=== PATIENT | male | born 1960 | race Caucasian/White ===

== ENCOUNTER 2016-05-19 04:02 | Emergency (ER) | payer MEDICAID, OTHER ==
[~2016-05-19] VITALS: Ht 188 cm; Wt 120.2 kg
[~2016-05-19 04:02] MED LIST: COREG; DIGO0.1262; ENALAPRIL; FURO20TA; INSLANTI; LEVO50TA66; NOVOLOG; SPIRONLACTONE; [UNRECOGNIZED DRUG - OTHER]
[2016-05-19 05:08] LABS: Hematocrit 47.1 % (41.0-53.0); Hemoglobin 15.9 g/dL (13.5-17.5); Mean Corpuscular Hemoglobin 30.4 pg (28.0-32.0); Mean Corpuscular Hgb Conc. 33.7 g/dL (32.0-36.0); Mean Corpuscular Volume 90.1 fL (80.0-100.0); Mean Platelet Volume 10.3 fL (7.4-10.4); Platelet Count (auto) 222 10^3/uL (140-450); SUSPECT VIEW TRANSMISSION; White Blood Cell 17.5 10^3/uL (4.4-10.8)
[2016-05-19 05:12] LABS: Metamyelocytes % 0; Myelocytes % 0; Promyelocytes % 0; Reactive Lymphocytes 0
[2016-05-19 05:15] LABS: INR 1.06 (0.9-1.15); Partial Thromboplastin Time 22.8 sec (22.64-33.71); Prothrombin Time 10.9 sec (9.37-12.3)
[2016-05-19] MEDS ORDERED: ONDANSETRON HCL 4 MG/2 ML VIAL ONE (05:21)
[2016-05-19 05:28] LABS: Albumin 3.8 g/dL (3.4-5.0); Calcium 8.2 mg/dL (8.5-10.1); Magnesium 1.9 mg/dL (1.6-2.6); Potassium 3.7 mmol/L (3.5-5.1)
[2016-05-19] MEDS ORDERED: ONDANSETRON HCL 4 MG/2 ML VIAL IV ONE (05:30)
[2016-05-19 05:33] LABS: Bilirubin, Total 0.6 mg/dL (0.2-1.0); Total Protein 7.4 g/dL (6.4-8.2)
[2016-05-19 06:02] LABS: Platelet Estimate Adequate
[2016-05-19 06:03] LABS: RBC Morphology Normal
[2016-05-19] MEDS ORDERED: SODIUM CHLORIDE 0.9% 1,000 ML IV ONE (06:45)
[2016-05-19] MEDS ORDERED: MORPHINE SULF 15mg ER tab PO ONE (07:15)
[2016-05-19 10:45] VITALS: BP 126/71
[2016-05-19 13:28] LABS: Urine RBC None Seen /hpf (0 - 3)
[2016-05-19 14:07] LABS: Urine Bilirubin Negative (Negative); Urine Blood Negative /uL (Negative); Urine Color Yellow (Yellow); Urine Glucose Normal (Normal); Urine Hyaline Cast FEW /lpf (0 - 2); Urine Ketone TRACE (Negative); Urine Mucus FEW (None Seen); Urine Nitrite Negative (Negative); Urine Urobilinogen Normal (Negative); Urine pH 5.5 (5.0-8.0)
[2016-05-19 15:03] VITALS: BP 106/62
[2016-05-19] MEDS ORDERED: KETOROLAC TROMETH 30 MG/ML 1ML VIAL IV ONE (15:15)
== END 2016-05-19 17:08 | disposition home or self-care (01) ==
LOC: ER 04:02
DX: R07.89 Other chest pain (principal); E03.9 Hypothyroidism, unspecified; E11.65 Type 2 diabetes mellitus with hyperglycemia; F11.23 Opioid dependence with withdrawal; I11.0 Hypertensive heart disease with heart failure; I50.9 Heart failure, unspecified; I48.91 Unspecified atrial fibrillation; R53.1 Weakness; R11.2 Nausea with vomiting, unspecified; Z95.0 Presence of cardiac pacemaker; Z79.4 Long term (current) use of insulin
CPT/HCPCS: 36415; 71020; 80053; 81001; 81002; 83735; 84443; 84484; 85007; 85027; 85610; 85730; 93005; 94761; 96361; 96374; 96375; 99285; J1885; J2405

== ENCOUNTER 2017-03-24 09:22 | Inpatient (IN) | payer MEDICAID, OTHER ==
[~2017-03-24] VITALS: Ht 195.6 cm; Wt 112.5 kg
[~2017-03-24 09:22] MED LIST changes: -COREG; +COREG PO; -DIGO0.1262; +DIGO0.1262 PO; -FURO20TA; +FURO20TA PO; -LEVO50TA66; +LEVO50TA66 PO; -SPIRONLACTONE; +SPIRONLACTONE PO; -[UNRECOGNIZED DRUG - OTHER]; +[UNRECOGNIZED DRUG - OTHER] PO
[2017-03-24 09:48] LABS: Basophils # (auto) 0.1 uL; Basophils % (auto) 0.8 % (0.0-2.0); Eosinophils # (auto) 0.3 uL; Eosinophils % (auto) 4.9 % (0.0-7.0); Hematocrit 44.1 % (41.0-53.0); Hemoglobin 15.5 g/dL (13.5-17.5); Lymphocytes # (auto) 2.4 uL; Lymphocytes % (auto) 33.8 % (10.0-50.0); Mean Corpuscular Hemoglobin 31.4 pg (28.0-32.0); Mean Corpuscular Hgb Conc. 35.1 g/dL (32.0-36.0); Mean Corpuscular Volume 89.5 fL (80.0-100.0); Monocytes # (auto) 0.6 uL; Neutrophils # (auto) 3.7 uL; Neutrophils % (auto) 52.5 % (37.0-80.0); Nucleated Red Blood Cells % 0.1 %; Platelet Count (auto) 222 10^3/uL (140-450); Red Blood Cells 4.93 10^6/uL (4.5-5.90); Red Cell Distribution Width 13.2 % (11.8-14.3); White Blood Cell 7.1 10^3/uL (4.4-10.8)
[2017-03-24 10:03] LABS: Albumin 3.9 g/dL (3.4-5.0); BUN/Creatinine Ratio 13.1; Bilirubin, Total 0.9 mg/dL (0.2-1.0); Calcium 8.4 mg/dL (8.5-10.1); Magnesium 2.3 mg/dL (1.6-2.6); Potassium 4.1 mmol/L (3.5-5.1); Total Protein 7.7 g/dL (6.4-8.2)
[2017-03-24] MEDS ORDERED: ENOXAPARIN SOD 120 MG/0.8 ML SYRINGE SC ONE (10:45)
[2017-03-24] MEDS ORDERED: ASPirin 325 MG TAB PO ONE (10:45)
[2017-03-24] MEDS ORDERED: METF-370 PO (12:13)
[2017-03-24] MEDS ORDERED: ASPI325T47 PO (12:13)
[2017-03-24] MEDS ORDERED: ATOR1TAB PO (12:13)
[2017-03-24] MEDS ORDERED: HYDR-531 PO (12:14)
[2017-03-24] MEDS ORDERED: INSU1INJ19 SC (12:14)
[2017-03-24] MEDS ORDERED: FENT25DI2 TD (12:14)
[2017-03-24] MEDS ORDERED: NITROGLYCERIN 0.4 MG SL TAB SL PRN (12:45)
[2017-03-24] MEDS ORDERED: DEXTROSE (50%) 50ML SYRG IV PRN (12:45)
[2017-03-24] MEDS ORDERED: MORPHINE SULF INJ 2 MG/ML SYRINGE 1ML IV PRN ×2 (12:45)
[2017-03-24] MEDS ORDERED: AMIODARONE HCL 900 MG in DEXTROSE 500 ML IV SCH ×2 (12:51→18:51)
[2017-03-24] MEDS ORDERED: LISINOPRIL 20 MG TAB PO ONE (13:45)
[2017-03-24] MEDS ORDERED: GABA300C10 PO (16:25)
[2017-03-24] MEDS ORDERED: fentaNYL 25MCG/HR 25 MCG/HR PAT TD SCH (16:30)
[2017-03-24] MEDS ORDERED: GABAPENTIN 400 MG CAP PO ONE (17:00)
[2017-03-24] MEDS: ACCU-CHEK COMFORT CURVE STRIP VI SCH ×2 (17:48→22:17)
[2017-03-24] MEDS: InsuLIN REG 1unit/0.01ml Soln (100units/ml) SC SCH ×2 (17:50→22:00)
[2017-03-24] MEDS ORDERED: FUROSEMIDE 40 MG TAB PO SCH (18:00)
[2017-03-24] MEDS: SPIRONOLACTONE 25 MG TAB PO SCH (18:17)
[2017-03-24] MEDS ORDERED: PATIENTS OWN MEDICATION (Atorvastatin Calcium 80 MG) PO SCH (22:00)
[2017-03-24] MEDS ORDERED: COREG 25 MG PO SCH (22:00)
[2017-03-24] MEDS: INSULIN DETEMIR(LEVEMIR) 1unit/0.01ml Soln (100units/ml) SC SCH (22:00)
[2017-03-24] MEDS: ASPirin-EC 325mg tab PO SCH (22:16)
[2017-03-24] MEDS: CARVEDILOL 12.5 MG TAB PO SCH (22:16)
[2017-03-24] MEDS: ATORVASTATIN 20 MG TAB PO SCH (22:17)
[2017-03-24] MEDS: GABAPENTIN 400 MG CAP PO SCH (22:17)
[2017-03-25] MEDS: HYDROcodone-ACET 10/325MG TAB PO PRN ×3 (02:58→23:00)
[2017-03-25] MEDS: SPIRONOLACTONE 25 MG TAB PO SCH ×2 (06:00→18:36)
[2017-03-25] MEDS: GABAPENTIN 400 MG CAP PO SCH ×3 (06:00→21:50)
[2017-03-25 06:33] LABS: Basophils # (auto) 0 uL; Basophils % (auto) 0.5 % (0.0-2.0); Eosinophils # (auto) 0.3 uL; Eosinophils % (auto) 3.1 % (0.0-7.0); Hematocrit 39.9 % (41.0-53.0); Hemoglobin 13.9 g/dL (13.5-17.5); Lymphocytes # (auto) 2.6 uL; Lymphocytes % (auto) 28.2 % (10.0-50.0); Mean Corpuscular Hemoglobin 31.5 pg (28.0-32.0); Mean Corpuscular Hgb Conc. 34.9 g/dL (32.0-36.0); Mean Corpuscular Volume 90.1 fL (80.0-100.0); Monocytes # (auto) 0.7 uL; Monocytes % (auto) 7.8 % (0.0-12.0); Neutrophils # (auto) 5.5 uL; Neutrophils % (auto) 60.4 % (37.0-80.0); Platelet Count (auto) 213 10^3/uL (140-450); Red Blood Cells 4.43 10^6/uL (4.5-5.90); White Blood Cell 9.1 10^3/uL (4.4-10.8)
[2017-03-25 06:38] LABS: BUN/Creatinine Ratio 12.4; Calcium 8.5 mg/dL (8.5-10.1); Potassium 4.2 mmol/L (3.5-5.1)
[2017-03-25 06:42] LABS: Cholesterol 165 mg/dL (< 200); HDL Cholesterol 34 mg/dL (40-59); LDL Cholesterol 116 mg/dL (< 100); Triglycerides 174 mg/dL (< 150)
[2017-03-25] MEDS: InsuLIN REG 1unit/0.01ml Soln (100units/ml) SC SCH ×4 (07:22→22:00)
[2017-03-25] MEDS: ACCU-CHEK COMFORT CURVE STRIP VI SCH ×4 (07:22→22:00)
[2017-03-25] MEDS: LEVOTHYROXINE SODIUM 25 MCG TAB PO SCH (07:22)
[2017-03-25] MEDS: CARVEDILOL 12.5 MG TAB PO SCH ×2 (09:55→21:50)
[2017-03-25] MEDS: ASPirin-EC 325mg tab PO SCH ×2 (09:57→21:50)
[2017-03-25] MEDS: FUROSEMIDE 40 MG TAB PO SCH (09:58)
[2017-03-25] MEDS: LISINOPRIL 20 MG TAB PO SCH (09:58)
[2017-03-25] MEDS ORDERED: LEVOTHYROXINE SODIUM 50 MCG TAB PO SCH (10:00)
[2017-03-25] MEDS: DIGOXIN 0.125 MG TAB PO SCH (10:00)
[2017-03-25] MEDS: INSULIN DETEMIR(LEVEMIR) 1unit/0.01ml Soln (100units/ml) SC SCH ×2 (11:57→22:00)
[2017-03-25] MEDS ORDERED: AMIODARONE HCL 200 MG TAB PO ONE (14:30)
[2017-03-25] MEDS: ATORVASTATIN 20 MG TAB PO SCH (21:50)
[2017-03-25] MEDS: AMIODARONE HCL 200 MG TAB PO SCH (21:50)
[2017-03-25 22:00] VITALS: BP 108/64
[2017-03-25 22:10] VITALS: BP 108/64
[2017-03-26] MEDS: HYDROcodone-ACET 10/325MG TAB PO PRN ×2 (05:01→21:22)
[2017-03-26 06:00] VITALS: BP 103/58
[2017-03-26] MEDS: LEVOTHYROXINE SODIUM 25 MCG TAB PO SCH (06:30)
[2017-03-26] MEDS: GABAPENTIN 400 MG CAP PO SCH ×3 (06:30→21:20)
[2017-03-26] MEDS: InsuLIN REG 1unit/0.01ml Soln (100units/ml) SC SCH ×4 (06:30→21:45)
[2017-03-26] MEDS: SPIRONOLACTONE 25 MG TAB PO SCH ×2 (06:30→17:04)
[2017-03-26] MEDS: ACCU-CHEK COMFORT CURVE STRIP VI SCH ×4 (06:30→21:24)
[2017-03-26] MEDS ORDERED: INFLUENZA QUAD 2017-2018 0.5 ML SYRG IM ONE (06:30)
[2017-03-26 09:00] VITALS: BP 81/39
[2017-03-26] MEDS: LISINOPRIL 20 MG TAB PO SCH (10:00)
[2017-03-26] MEDS: CARVEDILOL 12.5 MG TAB PO SCH ×2 (10:00→21:22)
[2017-03-26] MEDS: DIGOXIN 0.125 MG TAB PO SCH (10:00)
[2017-03-26] MEDS: AMIODARONE HCL 200 MG TAB PO SCH ×2 (10:00→21:20)
[2017-03-26] MEDS: FUROSEMIDE 40 MG TAB PO SCH (10:00)
[2017-03-26] MEDS: ASPirin-EC 325mg tab PO SCH ×2 (10:22→21:19)
[2017-03-26] MEDS: INSULIN DETEMIR(LEVEMIR) 1unit/0.01ml Soln (100units/ml) SC SCH ×2 (11:51→21:45)
[2017-03-26 13:00] VITALS: BP 98/60
[2017-03-26 17:00] VITALS: BP 119/55
[2017-03-26] MEDS: ATORVASTATIN 20 MG TAB PO SCH (21:21)
[2017-03-26 22:00] VITALS: BP 118/75
[2017-03-27] MEDS ORDERED: TEMAZEPAM 15 MG CAP PO ONE (03:00)
[2017-03-27 05:14] VITALS: BP 114/57
[2017-03-27] MEDS: SPIRONOLACTONE 25 MG TAB PO SCH (06:20)
[2017-03-27] MEDS: GABAPENTIN 400 MG CAP PO SCH ×2 (06:20→14:32)
[2017-03-27] MEDS: ACCU-CHEK COMFORT CURVE STRIP VI SCH ×2 (06:20→11:30)
[2017-03-27] MEDS: LEVOTHYROXINE SODIUM 25 MCG TAB PO SCH (06:20)
[2017-03-27] MEDS: InsuLIN REG 1unit/0.01ml Soln (100units/ml) SC SCH ×2 (06:20→11:30)
[2017-03-27 07:30] VITALS: BP 118/75
[2017-03-27 08:30] VITALS: BP 112/71
[2017-03-27] MEDS ORDERED: LISI2.5T47 PO (09:38)
[2017-03-27] MEDS ORDERED: CARV6.25 PO (09:38)
[2017-03-27] MEDS ORDERED: SPIR25TA88 PO (09:38)
[2017-03-27] MEDS ORDERED: FURO20TA PO (09:38)
[2017-03-27] MEDS: ASPirin-EC 325mg tab PO SCH (09:42)
[2017-03-27] MEDS: LISINOPRIL 20 MG TAB PO SCH (09:42)
[2017-03-27] MEDS: AMIODARONE HCL 200 MG TAB PO SCH (09:42)
[2017-03-27] MEDS: FUROSEMIDE 40 MG TAB PO SCH (09:43)
[2017-03-27] MEDS: CARVEDILOL 12.5 MG TAB PO SCH (09:43)
[2017-03-27] MEDS: DIGOXIN 0.125 MG TAB PO SCH (09:43)
[2017-03-27] MEDS: INSULIN DETEMIR(LEVEMIR) 1unit/0.01ml Soln (100units/ml) SC SCH (09:44)
[2017-03-27 12:54] VITALS: BP 109/61
== END 2017-03-27 15:00 | disposition home or self-care (01) | DRG 190 ==
LOC: ER 09:22 → EDBD 09:22 → TELE 09:23 → TELE-WESTW 03-25 22:05
PROVIDERS: ADMIT Internal Medicine; ATTEND Internal Medicine
PROC: 4B02XTZ Measurement of Cardiac Defibrillator, External Approach (ICD-10-PCS; principal; 2017-03-24)
DX: I21.4 Non-ST elevation (NSTEMI) myocardial infarction (principal); N17.0 Acute kidney failure with tubular necrosis; E11.65 Type 2 diabetes mellitus with hyperglycemia; I11.0 Hypertensive heart disease with heart failure; I50.22 Chronic systolic (congestive) heart failure; Z23 Encounter for immunization; E03.9 Hypothyroidism, unspecified; E78.5 Hyperlipidemia, unspecified; I42.0 Dilated cardiomyopathy; I45.6 Pre-excitation syndrome; Z79.82 Long term (current) use of aspirin; Z79.84 Long term (current) use of oral hypoglycemic drugs; Z79.899 Other long term (current) drug therapy; Z86.74 Personal history of sudden cardiac arrest; Z95.810 Presence of automatic (implantable) cardiac defibrillator
CPT/HCPCS: 36415; 80048; 80053; 80061; 82962; 83036; 83735; 84443; 84484; 85025; 93005; 93306; 96372; J1815